=== PATIENT | female | born 1995 | race Caucasian/White ===

== ENCOUNTER 2022-07-18 23:27 | Emergency (ER) | payer SELFPAY ==
[~2022-07-18] VITALS: Ht 172.7 cm; Wt 143.0 kg
[2022-07-18 23:27] VITALS: BP 155/84
== END 2022-07-19 04:30 | disposition left against medical advice (07) ==
LOC: ER 23:27
DX: R13.10 Dysphagia, unspecified (principal); Z53.21 Procedure and treatment not carried out due to patient leaving prior to being seen by health care provider

== ENCOUNTER 2023-04-25 16:55 | Emergency (ER) | payer MEDICAID, OTHER ==
[~2023-04-25] VITALS: Ht 172.7 cm; Wt 146.0 kg
[2023-04-25] MEDS ORDERED: ACETAMINOPHEN 500 MG TAB PO ONE (23:00)
[2023-04-25] MEDS ORDERED: ONDANSETRON ODT 4 MG TAB PO ONE (23:00)
[2023-04-25 23:21] LABS: Basophils # (auto) 0.1 10 ^3/uL (0-0.2); Basophils % (auto) 1.1 % (0.0-2.0); Eosinophils # (auto) 0.2 10 ^3/uL (0-0.8); Eosinophils % (auto) 2.3 % (0.0-7.0); Hematocrit 38.5 % (36.0-46.0); Hemoglobin 12.9 g/dL (12.2-16.2); Lymphocytes # (auto) 3.1 10 ^3/uL (0.4-5.4); Lymphocytes % (auto) 32.1 % (10.0-50.0); Mean Corpuscular Hemoglobin 28.4 pg (28.0-32.0); Mean Corpuscular Hgb Conc. 33.4 g/dL (32.0-36.0); Mean Corpuscular Volume 84.8 fL (80.0-100.0); Monocytes # (auto) 0.5 10 ^3/uL (0-1.3); Monocytes % (auto) 5.4 % (0.0-12.0); Neutrophils # (auto) 5.6 10 ^3/uL (1.6-8.6); Neutrophils % (auto) 59.1 % (37.0-80.0); Red Blood Cells 4.54 10^6/uL (4.0-5.20); Red Cell Distribution Width 13.1 % (11.8-14.3); White Blood Cell 9.5 10^3/uL (4.4-10.8)
[2023-04-25 23:42] LABS: Albumin 3.6 g/dL (3.4-5.0); BUN/Creatinine Ratio 14.5 (10.0-20.0); Potassium 3.7 mmol/L (3.5-5.1)
[2023-04-25 23:45] LABS: Bilirubin, Total 0.3 mg/dL (0.2-1.0); Total Protein 7.9 g/dL (6.4-8.2)
[2023-04-26 05:14] VITALS: BP 145/80
== END 2023-04-26 05:45 | disposition home or self-care (01) ==
LOC: ER 16:55
DX: O20.0 Threatened abortion (principal); Z3A.01 Less than 8 weeks gestation of pregnancy
CPT/HCPCS: 36415; 76801; 76817; 80053; 84702; 85025; 86900; 86901